=== PATIENT | male | born 1980 | race Caucasian/White ===

== ENCOUNTER 2024-09-29 06:25 | Day surgery (SDC) | payer OTHER, SELFPAY | END 2024-09-29 14:05 | disposition home or self-care (01) | LOC: GI 06:25 | PROVIDERS: ATTENDING PHYSICIAN Internal Medicine Gastroenterology | DX: Z12.11 Encounter for screening for malignant neoplasm of colon (principal); R12 Heartburn; D12.2 Benign neoplasm of ascending colon; D12.4 Benign neoplasm of descending colon; D12.5 Benign neoplasm of sigmoid colon; K62.1 Rectal polyp; Z80.0 Family history of malignant neoplasm of digestive organs | CPT/HCPCS: 45385; 43235; 88305 ==